=== PATIENT | male | born 1995 | race Caucasian/White ===

== ENCOUNTER 2023-02-22 17:48 | Emergency (ER) | payer OTHER, SELFPAY ==
--- NOTE | ~2023-02-22 | XR_ITS ---
EXAM: XR foot RT min 3V DATE: 02/22/2023 18:32 HISTORY: diffuse rt foot pain s/p injury tonight . COMPARISON: None available. FINDINGS: Normal mineralization. No fracture or dislocation. No lytic or blastic lesion. Joint space s are maintained. Large os articularis, which can be a source of chronic medial foot pain in some pat ients. No erosion or periosteal change. Soft tissues within normal limits. IMPRESSION: No acute osseous finding in the right foot. Reviewed, dictated and finalized at location K.
[2023-02-22 18:01] VITALS: BP 135/74; PULSE 99; RESP 16; TEMP 36.9; O2SAT 97
--- NOTE | 2023-02-22 18:41 | ED.LOWEXIN ---
HPI - Extremity Injury (Lower) General Chief Complaint: Extremity Injury, Lower Stated Complaint: Right Foot Injury Time Seen by Provider: 02/22/23 18:35 Source: patient and RN notes reviewed Mode of arrival: wheelchair Limitations: no limitations History of Present Illness HPI Narrative: Patient presents today complaining of a right foot injury just prior to arrival. He was playing on an inflatable house with when he stepped down onto his foot and felt a few pops. Denies numbness or tingling. Currently rates pain 4/10, which increases with touching the medial foot. He has tried no [id number] treatment prior to arrival. Related Data Allergies Allergy/AdvReac Type Severity Reaction Status Date / Time No Known Allergies Allergy Mild Verified 02/22/23 18:33 Review of Systems Review of Systems: CONSTITUTIONAL: Denies body aches, fever, chills, or sweats. EYES: Denies visual changes, redness, or discharge. ENT: Denies rhinorrhea, congestion, sore throat, or otalgia. CARDIOVASCULAR: Denies chest pain, palpitations, or edema. RESPIRATORY: Denies cough or dyspnea. GASTROINTESTINAL: Denies abdominal pain, nausea, vomiting, or diarrhea. GENITOURINARY: Denies dysuria or hematuria. SKIN: Denies rash, itching, or wounds. MUSCULOSKELETAL: Denies back pain, or myalgia.+ right foot injury NEUROLOGIC: Denies headache, numbness, tingling, or weakness. PSYCH: Denies depression or anxiety. PMFSH Comments At time of signature, I have reviewed and agree with nursing past medical, surgical, social and family history unless otherwise noted. Please see nursing chart for further information. There is no relevant family history pertinent to the presenting complaint Exam Narrative: GENERAL: Well-appearing, well-nourished, and in no acute distress. HEAD: Normocephalic, atraumatic. EYES: EOMI. No redness or drainage. Conjunctivae normal. ENT: Mucous membranes pink and moist. NECK: Normal AROM. CHEST: No respiratory distress. EXTREMITIES: Right foot: Tenderness to the midfoot. Mild localized swelling to the medial aspect of the proximal foot. Distal sensation intact. Capillary refill normal. Pedal pulse normal. Full range of motion of toes. No tenderness to the ankle. Color normal. No ecchymosis or erythema noted. SKIN: Warm, dry, no rash. Capillary refill normal. Normal skin turgor. NEURO: No focal deficits. Alert and oriented x3. Gait steady. PSYCH: Normal affect. No signs of depression or anxiety. Course Course Level of Care: Express Care Visit Vital Signs Vital signs: Vital Signs Temperature 98.5 F 02/22/23 18:01 Pulse Rate 99 02/22/23 18:01 Respiratory Rate 16 02/22/23 18:01 Blood Pressure 135/74 02/22/23 18:01 Pulse Oximetry 97 02/22/23 18:01 Oxygen Delivery Room Air 02/22/23 18:01 Temperature 98.5 F 02/22/23 18:01 Pulse Rate 99 02/22/23 18:01 Respiratory Rate 16 02/22/23 18:01 Blood Pressure 135/74 02/22/23 18:01 Pulse Oximetry 97 02/22/23 18:01 Oxygen Delivery Room Air 02/22/23 18:01 Reviewed. Pt has been instructed to follow up with his PCP regarding his elevated blood pressure today. MDM - Extremity Injury (Lower) MDM Narrative Medical decision making narrative: X-rays negative for fracture. Discussed RICE. No prescription medications or further testing indicated at this time. Anticipatory guidance given. Differential Diagnosis Differential diagnosis: Likely other (Foot fracture, contusion, foot sprain) Imaging Data Radiologist's impression: ITS Impressions Foot X-Ray 02/22/23 18:35 IMPRESSION: No acute osseous finding in the right foot. Critical Care Time Critical Care Time Critical Care Time: No Discharge Plan Discharge Clinical Impression: Right foot sprain Qualifiers: Encounter type: initial encounter Qualified Code(s): S93.601A - Unspecified sprain of right foot, initial encounter Patient Disposition: H
== END 2023-02-22 18:53 | disposition home or self-care (01) ==
PROVIDERS: Emergency Provider Nurse Practitioner
DX: S93.601A Unspecified sprain of right foot, initial encounter (principal); X50.0XXA Overexertion from strenuous movement or load, initial encounter
CPT/HCPCS: 73630; 99213; G0463